=== PATIENT | female | born 1955 | race African-American/Black ===

== ENCOUNTER 2018-11-19 20:23 | Inpatient (IN) ==
[2018-11-20] MEDS ORDERED: ONDANSETRON 4 MG/2 ML VIAL IV ONE (00:59)
[2018-11-20] MEDS ORDERED: MORPHINE 4 MG/1 ML VIAL IV STA (00:59)
[2018-11-20 02:09] LABS: Basophils % 0.3 % (0.0-0.8); Eosinophils % 0.2 % (0.00-10.9); Hematocrit 39.2 VOL% (35.7-47.0); Hemoglobin 12.4 GM/DL (12.0-16.0); Immature Granulocytes % 0.4 %; Immature Granulocytes Absolute 0.06 #; Lymphocytes # 2.4 10*3/uL (1.4-4.0); Lymphocytes % 17.7 % (21.3-54.2); Mean Corpuscular HGB Conc 31.6 GM/DL (32-36); Mean Corpuscular Volume 79.8 FL (87-102); Mean Platelet Volume 12.1 FL (9.6-12.0); Monocytes % 10.8 % (1.7-12.7); Neutrophils % 70.6 % (38.7-73.9); Platelet Count 275 T/CUMM (130-400); Red Blood Count 4.91 MC/CUMM (3.8-5.5); Red Cell Distribution Width 16.7 % (9.3-17.3); White Blood Count 13.8 T/CUMM (4-12)
[2018-11-20 02:11] LABS: Apearance,Urine CLEAR (Clear); Bilirubin,Urine Negative (Negative); Blood, Urine Negative (Negative); Glucose,Urine (UA) Negative (Negative); Ketones,Urine 5 mg/dL (Negative); Mucus,Urine Occasional /LPF (Occasional); Nitrite,Urine Negative (Negative); Protein,Urine Negative; RBC,Urine <1 /HPF (0-4); Squamous Epithelial Cell,Urine Occasional /HPF (0-10); Urine Color Amber (Yellow); Urine Specific Gravity 1.012 (1.001-1.035); WBC,Urine 1 /HPF (0-6)
[2018-11-20] MEDS ORDERED: KETOROLAC 30 MG/1 ML VIAL IV STA (02:31)
[2018-11-20 03:26] LABS: Albumin 3.3 G/DL (3.4-5.0); Bilirubin,Total 2.7 MG/DL (0.2-1.0); Calcium 9.4 MG/DL (8.5-10.1); Total Protein 8.4 G/DL (6.4-8.3)
[2018-11-20] MEDS ORDERED: AMPICILLIN/SULBACTAM 3,000 MG in SODIUM CHLORIDE 0.9% 100 ML IV STA (06:43)
[2018-11-20] MEDS ORDERED: ONDANSETRON 4 MG/2 ML VIAL IV STA (07:08)
[2018-11-20] MEDS ORDERED: HYDROmorphone 2 MG/1 ML VIAL IV STA (08:09)
[2018-11-20] MEDS ORDERED: PIPERACILLIN/TAZOBACTAM 3,375 MG in SODIUM CHLORIDE 0.9% 100 ML IV SCH (09:30)
[2018-11-20] MEDS ORDERED: FLUTICASONE 50 MCG NASAL SPRAY 16 GM BOTTLE BOTH NARES PRN ×2 (10:00→10:15)
[2018-11-20] MEDS ORDERED: POTASSIUM CHLORIDE 10 MEQ PO SCH (10:00)
[2018-11-20] MEDS ORDERED: GABAPENTIN 600 MG TABLET PO SCH (10:00)
[2018-11-20] MEDS ORDERED: CITALOPRAM 20 MG TABLET PO SCH (10:00)
[2018-11-20] MEDS ORDERED: CLOTRIMAZOLE/BETAMETHASONE CREAM 15 GM TUBE TOP PRN ×2 (10:00→10:15)
[2018-11-20] MEDS ORDERED: HYDROmorphone 2 MG/1 ML VIAL IV PRN ×3 (10:00→15:41)
[2018-11-20] MEDS ORDERED: ACETAMINOPHEN 325 MG TABLET PO PRN ×2 (10:00→10:15)
[2018-11-20] MEDS ORDERED: NON-FORMULARY MEDICATION (Omeprazole 20 MG) PO SCH ×2 (10:00)
[2018-11-20] MEDS ORDERED: hydroCHLOROthiazide 25 MG TABLET PO SCH (10:00)
[2018-11-20] MEDS ORDERED: RANITIDINE 150 MG TABLET PO SCH (10:00)
[2018-11-20] MEDS ORDERED: CARVEDILOL 25 MG TABLET PO SCH (10:00)
[2018-11-20] MEDS ORDERED: PANTOPRAZOLE 40 MG TABLET PO SCH (10:00)
[2018-11-20] MEDS ORDERED: ONDANSETRON 4 MG/2 ML VIAL IV PRN (10:00)
[2018-11-20] MEDS ORDERED: SODIUM CHLORIDE 0.9% 1,000 ML IV SCH (10:00)
[2018-11-20] MEDS ORDERED: DOCUSATE SODIUM 100 MG CAPSULE PO SCH (10:00)
[2018-11-20] MEDS: HYDROmorphone 2 MG/1 ML VIAL IV PRN ×3 (11:48→20:56)
[2018-11-20] MEDS: PIPERACILLIN/TAZOBACTAM 3,375 MG in SODIUM CHLORIDE 0.9% 100 ML IV SCH ×2 (11:51→17:30)
[2018-11-20] MEDS: SODIUM CHLORIDE 0.9% 1,000 ML IV SCH ×2 (11:52→17:24)
[2018-11-20] MEDS: GABAPENTIN 600 MG TABLET PO SCH ×2 (11:53→21:01)
[2018-11-20] MEDS: FAMOTIDINE 20 MG TABLET PO SCH ×2 (11:53→21:01)
[2018-11-20] MEDS: POTASSIUM CHLORIDE 10 MEQ TABLET PO SCH ×3 (11:53→21:01)
[2018-11-20] MEDS ORDERED: PROMETHAZINE 25 MG/1 ML VIAL IM PRN (15:43)
[2018-11-20] MEDS: KETOROLAC 30 MG/1 ML VIAL IV SCH ×2 (17:35→23:20)
[2018-11-20] MEDS ORDERED: DONEPEZIL 5 MG TABLET PO SCH (21:00)
[2018-11-20] MEDS: DONEPEZIL 5 MG TABLET PO SCH (21:01)
[2018-11-20] MEDS: CARVEDILOL 25 MG TABLET PO SCH (21:01)
[2018-11-20] MEDS: DOCUSATE SODIUM 100 MG CAPSULE PO SCH (21:01)
[2018-11-21] MEDS: PIPERACILLIN/TAZOBACTAM 3,375 MG in SODIUM CHLORIDE 0.9% 100 ML IV SCH ×3 (01:47→17:05)
[2018-11-21 05:45] LABS: Basophils % 0.3 % (0.0-0.8); Eosinophils # 0.1 10*3/uL (0.0-0.87); Hematocrit 34.1 VOL% (35.7-47.0); Hemoglobin 10.5 GM/DL (12.0-16.0); Immature Granulocytes % 0.3 %; Immature Granulocytes Absolute 0.03 #; Lymphocytes # 1.9 10*3/uL (1.4-4.0); Lymphocytes % 18.8 % (21.3-54.2); Mean Corpuscular HGB Conc 30.8 GM/DL (32-36); Mean Corpuscular Volume 80.2 FL (87-102); Mean Platelet Volume 12.3 FL (9.6-12.0); Monocytes % 7.3 % (1.7-12.7); Neutrophils % 72.3 % (38.7-73.9); Platelet Count 228 T/CUMM (130-400); Red Blood Count 4.25 MC/CUMM (3.8-5.5); Red Cell Distribution Width 16.8 % (9.3-17.3); White Blood Count 10.1 T/CUMM (4-12)
[2018-11-21 05:54] LABS: INR 1.1; PT Patient Result 11.6 SECS
[2018-11-21] MEDS ORDERED: INDOCYANINE GREEN 25 MG VIAL IV ONE (06:00)
[2018-11-21] MEDS ORDERED: cefOXitin 2,000 MG in SYRINGE 1 EACH IV ONE (06:00)
[2018-11-21 06:07] LABS: Hypochromasia 1+; Ovalocytes Slight; Platelet Estimate Adequate
[2018-11-21] MEDS: KETOROLAC 30 MG/1 ML VIAL IV SCH ×4 (06:08→23:00)
[2018-11-21] MEDS: SODIUM CHLORIDE 0.9% 1,000 ML IV SCH ×3 (06:12→15:52)
[2018-11-21 06:40] LABS: Albumin 2.7 G/DL (3.4-5.0); Bilirubin,Total 3.7 MG/DL (0.2-1.0); Calcium 8.7 MG/DL (8.5-10.1); Osmolality,Calculated 272.7 MOS/KG (273-304); Total Protein 7.6 G/DL (6.4-8.3)
[2018-11-21] MEDS ORDERED: FAMOTIDINE 20 MG TABLET PO ONE (06:56)
[2018-11-21] MEDS: LEVOTHYROXINE 50 MCG TABLET PO SCH (06:56)
[2018-11-21] MEDS ORDERED: LEVOTHYROXINE 50 MCG TABLET PO SCH (07:00)
[2018-11-21] MEDS ORDERED: INDOMETHACIN SUPP 50 MG SUPP RECTAL ONE (08:00)
[2018-11-21] MEDS: ONDANSETRON 4 MG/2 ML VIAL IV PRN ×2 (09:35→20:23)
[2018-11-21] MEDS: LACTATED RINGERS 1,000 ML IV SCH ×3 (10:40→14:46)
[2018-11-21] MEDS ORDERED: BUPIVACAINE MPF 0.25% /EPI 30 ML VIAL ONE (10:49)
[2018-11-21] MEDS ORDERED: LIDOCAINE 1% 5 ML VIAL ONE ×2 (10:49→11:09)
[2018-11-21] MEDS: CITALOPRAM 20 MG TABLET PO SCH (12:24)
[2018-11-21] MEDS: CARVEDILOL 25 MG TABLET PO SCH ×2 (12:24→20:10)
[2018-11-21] MEDS: DOCUSATE SODIUM 100 MG CAPSULE PO SCH ×2 (12:24→20:10)
[2018-11-21] MEDS: FAMOTIDINE 20 MG TABLET PO SCH ×2 (12:25→20:10)
[2018-11-21] MEDS: hydroCHLOROthiazide 25 MG TABLET PO SCH (12:25)
[2018-11-21] MEDS: GABAPENTIN 600 MG TABLET PO SCH ×2 (12:25→20:10)
[2018-11-21] MEDS: POTASSIUM CHLORIDE 10 MEQ TABLET PO SCH ×3 (12:25→20:09)
[2018-11-21] MEDS: PANTOPRAZOLE 40 MG TABLET PO SCH (12:25)
[2018-11-21] MEDS ORDERED: PROPOFOL 200 MG/20 ML VIAL IV ONE (13:21)
[2018-11-21] MEDS ORDERED: MIDAZOLAM 2 MG/2 ML VIAL ONE (13:21)
[2018-11-21] MEDS ORDERED: DESFLURANE 1 UNIT/15 MINUTE INH ONE (13:21)
[2018-11-21] MEDS ORDERED: DEXAMETHASONE 4 MG/1 ML VIAL ONE (13:22)
[2018-11-21] MEDS ORDERED: ONDANSETRON 4 MG/2 ML VIAL ONE ×2 (13:22→13:33)
[2018-11-21] MEDS ORDERED: GLYCOPYRROLATE 0.4 MG/2 ML VIAL ONE (13:22)
[2018-11-21] MEDS ORDERED: fentaNYL 100 MCG/2 ML VIAL ONE (13:22)
[2018-11-21] MEDS ORDERED: ROCURONIUM 100 MG/10 ML VIAL IV ONE (13:23)
[2018-11-21] MEDS ORDERED: PHENYLEPHRINE 1 MG/10 ML SYRINGE IV ONE (13:23)
[2018-11-21] MEDS ORDERED: LACTATED RINGERS 1,000 ML IV ONE (13:23)
[2018-11-21] MEDS ORDERED: SUCCINYLCHOLINE 200 MG/10 ML VIAL ONE (13:23)
[2018-11-21] MEDS ORDERED: NEOSTIGMINE 10 MG/10 ML VIAL ONE (13:23)
[2018-11-21] MEDS ORDERED: ACETAMINOPHEN 1,000 MG/100 ML VIAL IV ONE (13:23)
[2018-11-21] MEDS ORDERED: HYDROmorphone 2 MG/1 ML VIAL ONE (13:32)
[2018-11-21] MEDS ORDERED: ONDANSETRON 4 MG/2 ML VIAL IV PRN (13:36)
[2018-11-21] MEDS: HYDROmorphone 2 MG/1 ML VIAL IV PRN ×4 (13:40→20:08)
[2018-11-21] MEDS ORDERED: KETOROLAC 30 MG/1 ML VIAL ONE (13:41)
[2018-11-21] MEDS: DONEPEZIL 5 MG TABLET PO SCH (20:10)
[2018-11-22] MEDS: HYDROmorphone 2 MG/1 ML VIAL IV PRN ×2 (00:13→04:32)
[2018-11-22] MEDS: PIPERACILLIN/TAZOBACTAM 3,375 MG in SODIUM CHLORIDE 0.9% 100 ML IV SCH ×2 (02:48→09:34)
[2018-11-22] MEDS: KETOROLAC 30 MG/1 ML VIAL IV SCH ×2 (04:14→11:49)
[2018-11-22 06:51] LABS: Basophils % 0.1 % (0.0-0.8); Immature Granulocytes % 0.4 %; Immature Granulocytes Absolute 0.06 #; Lymphocytes # 1.2 10*3/uL (1.4-4.0); Lymphocytes % 7.7 % (21.3-54.2); Mean Corpuscular HGB Conc 32.3 GM/DL (32-36); Mean Corpuscular Volume 79.1 FL (87-102); Mean Platelet Volume 12.7 FL (9.6-12.0); Monocytes % 5.5 % (1.7-12.7); Neutrophils % 86.3 % (38.7-73.9); Platelet Count 306 T/CUMM (130-400); Red Blood Count 3.92 MC/CUMM (3.8-5.5); Red Cell Distribution Width 16.2 % (9.3-17.3); White Blood Count 15.7 T/CUMM (4-12)
[2018-11-22] MEDS: LEVOTHYROXINE 50 MCG TABLET PO SCH (07:20)
[2018-11-22 07:21] LABS: Alanine Aminotransferase 92 U/L (13-56); Albumin 2.4 G/DL (3.4-5.0); Alkaline Phosphatase 244 U/L (45-117); Aspartate Amino Transferase 74 U/L (0-37); Blood Urea Nitrogen 11 MG/DL (7-18); Calcium 8.3 MG/DL (8.5-10.1); Glucose 117 MG/DL (74-106); Osmolality,Calculated 276.5 MOS/KG (273-304); Total Protein 7.1 G/DL (6.4-8.3)
[2018-11-22] MEDS: SODIUM CHLORIDE 0.9% 1,000 ML IV SCH ×3 (07:21→11:49)
[2018-11-22 07:57] VITALS: BP 122/56
[2018-11-22] MEDS: POTASSIUM CHLORIDE 10 MEQ TABLET PO SCH (09:31)
[2018-11-22] MEDS: GABAPENTIN 600 MG TABLET PO SCH (09:31)
[2018-11-22] MEDS: PANTOPRAZOLE 40 MG TABLET PO SCH (09:31)
[2018-11-22] MEDS: FAMOTIDINE 20 MG TABLET PO SCH (09:31)
[2018-11-22] MEDS: CARVEDILOL 25 MG TABLET PO SCH (09:31)
[2018-11-22] MEDS: hydroCHLOROthiazide 25 MG TABLET PO SCH (09:31)
[2018-11-22] MEDS: DOCUSATE SODIUM 100 MG CAPSULE PO SCH (09:31)
[2018-11-22] MEDS: CITALOPRAM 20 MG TABLET PO SCH (09:31)
[2018-11-22] MEDS ORDERED: AMOXICILLIN/CLAV 875 MG TABLET PO SCH (10:30)
== END 2018-11-22 11:20 | disposition home or self-care (01) | DRG 263 ==
LOC: N.ED 20:23 → N.5E 11-20 06:40 → N.EDINP 11-20 08:00 → N.5E 11-20 09:34 → N.ED 11-20 09:34 → N.5E 11-20 09:50
PROVIDERS: ADMIT Internal Medicine; ATTEND Internal Medicine
PROC: ERCPWSP (ICD-10-PCS; 2018-11-21 12:20)